=== PATIENT | male | born 1995 | race Caucasian/White ===

== ENCOUNTER 2017-04-26 13:48 | Emergency (ER) | payer OTHER ==
[~2017-04-26] VITALS: Ht 180.3 cm; Wt 70.0 kg
[~2017-04-26 13:48] MED LIST: ALBU17I INH
[2017-04-26 13:50] VITALS: BP 125/76; PULSE 78; RESP 13; TEMP 98.2; O2SAT 99
[2017-04-26] MEDS ORDERED: SODIUM CHLOR 0.9% 1000 ML INJ 1,000 ML IV ONE (15:04)
[2017-04-26 15:06] VITALS: O2SAT 100
[2017-04-26] MEDS ORDERED: SODIUM CHLORIDE 0.9% FLUSH 10 ML FLUSH IVF PRN (15:15)
[2017-04-26 15:39] LABS: AUTOMATED NEUTROPHIL # 4.1 TH/MM3 (1.8-7.7); BASOPHIL % 0.4 % (0.0-2.0); EOSINOPHIL # 0.2 TH/MM3 (0-0.4); EOSINOPHIL % 3.1 % (0.0-4.0); HEMATOCRIT 42.2 % (39.0-51.0); HEMO FLAGS DIFF FINAL; LYMPH % 24.9 % (9.0-44.0); LYMPHOCYTE # 1.6 TH/MM3 (1.0-4.8); MEAN CELL VOLUME 85.5 FL (80.0-100.0); MEAN CORPUSCULAR HEMOGLOBIN 28.8 PG (27.0-34.0); MEAN CORPUSCULAR HGB CONC 33.7 % (32.0-36.0); MONO % 8.9 % (0.0-8.0); NEUT % 62.7 % (16.0-70.0); PLATELET COUNT 210 TH/MM3 (150-450); RED BLOOD COUNT 4.93 MIL/MM3 (4.50-5.90); RED CELL DISTRIBUTION WIDTH 13.1 % (11.6-17.2); WHITE BLOOD COUNT 6.6 TH/MM3 (4.0-11.0)
--- NOTE | 2017-04-26 15:42 | PD ---
HPI Chief Complaint: Alcohol/Drug Intoxication Time Seen by Provider: 15:00 Travel History International Travel<30 days: No Contact w/Intl Traveler<30days: No Traveled to known affect area: No History of Present Illness HPI This Is a 22-year-old male who presents accompanied by his parents for evaluation. The patient has long-standing history of marijuana use. He occasionally snorts Xanax and uses other drugs. He reports that yesterday while partying he snorted 5 Xanax pills. Someone said a video of this to his parents are concerned and brought him for evaluation. He reports that the only drugs that he is use recently or the Xanax and marijuana. He denies any IV drug abuse. He denies any opiate use. He denies any alcohol use. He apparently said that he has thoughts of suicide occasionally in front of his parents although he is currently denying it. He is somewhat of a poor historian at this time and seems reluctant to answer questions accurately. [facility] Past Medical History ADD: Yes ADHD: Yes Asthma: Yes Anxiety: Yes Diminished Hearing: No Immunizations Current: Yes Past Surgical History Surgical History: No Previous Surgery Social History Alcohol Use: Yes Tobacco Use: No Substance Use: Yes Allergies-Medications (Allergen,Severity, Reaction): Coded Allergies: No Known Allergies (Verified , 04/26/17) Reported Meds & Prescriptions Reported Meds & Active Scripts Active Reported Proventil Mdi (Albuterol Sulfate) 17 Gm Aero 17 Gm INH Q4 PRN Review of Systems Except as stated in HPI: all other systems reviewed are Neg Physical Exam Narrative GENERAL: This is a disheveled-appearing male who is somewhat drowsy but awake and responding to commands and questions. His vital signs have been reviewed. SKIN: Warm and dry. HEAD: Atraumatic. Normocephalic. EYES: Pupils equal and round. No scleral icterus. No injection or drainage. ENT: No nasal bleeding or discharge. Mucous membranes pink and moist. NECK: Trachea midline. No JVD. CARDIOVASCULAR: Regular rate and rhythm. No murmur appreciated. RESPIRATORY: No accessory muscle use. Clear to auscultation. Breath sounds equal bilaterally. GASTROINTESTINAL: Abdomen soft, non-tender, nondistended. Hepatic and splenic margins not palpable. MUSCULOSKELETAL: No obvious deformities. No clubbing. No cyanosis. No edema. NEUROLOGICAL: Awake and alert. No obvious cranial nerve deficits. Motor grossly within normal limits. Slurred speech. PSYCHIATRIC: Appropriate mood and affect; insight and judgment normal. Data Data Last Documented VS Vital Signs Date Time Temp Pulse Resp B/P (MAP) Pulse Ox O2 Delivery O2 Flow Rate FiO2 04/26/17 18:43 76 16 110/68 (82) 98 Room Air 04/26/17 13:50 98.2 Orders Orders Electrocardiogram (04/26/17 15:04) Complete Blood Count With Diff (04/26/17 15:04) Comprehensive Metabolic Panel (04/26/17 15:04) Iv Access Insert/Monitor (04/26/17 15:04) Ecg Monitoring (04/26/17 15:04) Oximetry (04/26/17 15:04) Sodium Chloride 0.9% Flush (Ns Flush) (04/26/17 15:15) Sodium Chlor 0.9% 1000 Ml Inj (Ns 1000 M (04/26/17 15:04) Drug Screen, Random Urine (04/26/17 15:04) Alcohol (Ethanol) (04/26/17 15:04) Salicylates (Aspirin) (04/26/17 15:04) Tylenol (Acetaminophen) (04/26/17 15:04) Psych Screen (04/26/17 15:04) Dextrose 50% In Emanuel (Vial) Inj (D50w (Vi (04/26/17 16:30) Labs Laboratory Tests Test 04/26/17 15:14 04/26/17 16:06 White Blood Count 6.6 TH/MM3 Red Blood Count 4.93 MIL/MM3 Hemoglobin 14.2 GM/DL Hematocrit 42.2 % Mean Corpuscular Volume 85.5 FL Mean Corpuscular Hemoglobin 28.8 PG Mean Corpuscular Hemoglobin Concent 33.7 % Red Cell Distribution Width 13.1 % Platelet Count 210 TH/MM3 Mean Platelet Volume 9.3 FL Neutrophils (%) (Auto) 62.7 % Lymphocytes (%) (Auto) 24.9 % Monocytes (%) (Auto) 8.9 % Eosinophils (%) (Auto) 3.1 % Basophils (%) (Auto) 0.4 % Neutrophils # (Auto) 4.1 TH/MM3 Lymphocytes # (Auto) 1.6 TH/MM3 Monocytes # (Auto) 0.6 TH/MM3 Eosinophils # (Auto) 0.2 TH/MM3 Basophils # (Auto) 0.0 TH/MM3 CBC Comment DIFF FINAL Differential Comment Blood Urea Nitrogen 14 MG/DL Creatinine 0.77 MG/DL Random Glucose 53 MG/DL Total Protein 7.2 GM/DL Albumin 4.2 GM/DL Calcium Level 9.0 MG/DL Alkaline Phosphatase 82 U/L Aspartate Amino Transf (AST/SGOT) 12 U/L Alanine Aminotransferase (ALT/SGPT) 23 U/L Total Bilirubin 0.3 MG/DL Sodium Level 140 MEQ/L Potassium Level 4.2 MEQ/L Chloride Level 107 MEQ/L Carbon Dioxide Level 29.9 MEQ/L Anion Gap 3 MEQ/L Estimat Glomerular Filtration Rate 128 ML/MIN Salicylates Level 2.3 MG/DL Acetaminophen Level LESS THAN 2.0 MCG/ML Ethyl Alcohol Level LESS THAN 3 MG/DL Urine Opiates Screen NEG Urine Barbiturates Screen NEG Urine Amphetamines Screen NEG Urine Benzodiazepines Screen POS Urine Cocaine Screen NEG Urine Cannabinoids Screen POS MDM Medical Decision Making Medical Screen Exam Complete: Yes Emergency Medical Condition: Yes Medical Record Reviewed: Yes Differential Diagnosis Polysubstance abuse, intentional overdose, major depressive disorder, suicidal ideation Narrative Course 22-year-old male presents parents for evaluation of Xanax and marijuana abuse. He apparently has also been suffering from some suicidal thoughts although he is currently Being very evasive with being very evasive with questioning. He is currently awake and alert but he has mild slurred speech. Plan is for basic lab work, EKG, ECG monitoring. He will be monitored closely. I have discussed with my attending Dr. Massey has opted to place the patient under Gutierrez act given the unpredictable nature of this patient. Mental health screening discussed with the patient. Psychiatric screen ordered. Blood sugar 53, lab work otherwise unremarkable. The patient is being given D50. He is medically clear for psychiatric disposition. Diagnosis Primary Impression: Polysubstance abuse Miguel A Villar Apr 26, 2017 15:42
[2017-04-26 16:00] LABS: ALT (GPT) 23 U/L (12-78); ANION GAP 3 MEQ/L (5-15); AST (GOT) 12 U/L (15-37); BICARBONATE 29.9 MEQ/L (21.0-32.0); BLOOD UREA NITROGEN 14 MG/DL (7-18); CHLORIDE 107 MEQ/L (98-107); GLOMERULAR FILTRATION RATE 128 ML/MIN (>89); POTASSIUM 4.2 MEQ/L (3.5-5.1); SODIUM (NA) 140 MEQ/L (136-145)
[2017-04-26 16:08] LABS: ACETAMINOPHEN LESS THAN 2.0 MCG/ML (10.0-30.0); ALKALINE PHOSPHATASE 82 U/L (45-117); TOTAL BILIRUBIN ADULT 0.3 MG/DL (0.2-1.0)
[2017-04-26 16:19] LABS: ALCOHOL LESS THAN 3 MG/DL (0-5)
[2017-04-26 16:21] VITALS: BP 114/73; PULSE 66; RESP 18; O2SAT 99
[2017-04-26] MEDS ORDERED: DEXTROSE 50% IN WATER 50 ML VIAL(D50) IV PUSH ONE (16:30)
--- NOTE | 2017-04-26 16:34 | PD ---
Physical Exam Narrative GENERAL: DISHEVELED APPEARANCE, YOUNG MALE SKIN: Warm and dry. HEAD: Atraumatic. Normocephalic. EYES: Pupils equal and round. No scleral icterus. No injection or drainage. ENT: No nasal bleeding or discharge. Mucous membranes pink and moist. NECK: Trachea midline. No JVD. CARDIOVASCULAR: Regular rate and rhythm. RESPIRATORY: No accessory muscle use. Clear to auscultation. Breath sounds equal bilaterally. GASTROINTESTINAL: Abdomen soft, non-tender, nondistended. Hepatic and splenic margins not palpable. MUSCULOSKELETAL: Extremities without clubbing, cyanosis, or edema. No obvious deformities. NEUROLOGICAL: Awake and alert. No obvious cranial nerve deficits. Motor grossly within normal limits. Five out of 5 muscle strength in the arms and legs. Normal speech. PSYCHIATRIC: Appropriate mood and affect; insight and judgment normal. EVASIVE BEHAVIOR AND NOT FORTHCOMING, HOWEVER HE HAS MADE COMMENTS TO FAMILY AND STAFF THAT RAISE THE SUSPICION OF SI Data Data Last Documented VS Vital Signs Date Time Temp Pulse Resp B/P (MAP) Pulse Ox O2 Delivery O2 Flow Rate FiO2 04/26/17 16:21 66 18 114/73 (87) 99 Room Air 04/26/17 13:50 98.2 Orders Orders Electrocardiogram (04/26/17 15:04) Complete Blood Count With Diff (04/26/17 15:04) Comprehensive Metabolic Panel (04/26/17 15:04) Iv Access Insert/Monitor (04/26/17 15:04) Ecg Monitoring (04/26/17 15:04) Oximetry (04/26/17 15:04) Sodium Chloride 0.9% Flush (Ns Flush) (04/26/17 15:15) Sodium Chlor 0.9% 1000 Ml Inj (Ns 1000 M (04/26/17 15:04) Drug Screen, Random Urine (04/26/17 15:04) Alcohol (Ethanol) (04/26/17 15:04) Salicylates (Aspirin) (04/26/17 15:04) Tylenol (Acetaminophen) (04/26/17 15:04) Psych Screen (04/26/17 15:04) Dextrose 50% In Emanuel (Vial) Inj (D50w (Vi (04/26/17 16:30) Labs Laboratory Tests Test 04/26/17 15:14 White Blood Count 6.6 TH/MM3 Red Blood Count 4.93 MIL/MM3 Hemoglobin 14.2 GM/DL Hematocrit 42.2 % Mean Corpuscular Volume 85.5 FL Mean Corpuscular Hemoglobin 28.8 PG Mean Corpuscular Hemoglobin Concent 33.7 % Red Cell Distribution Width 13.1 % Platelet Count 210 TH/MM3 Mean Platelet Volume 9.3 FL Neutrophils (%) (Auto) 62.7 % Lymphocytes (%) (Auto) 24.9 % Monocytes (%) (Auto) 8.9 % Eosinophils (%) (Auto) 3.1 % Basophils (%) (Auto) 0.4 % Neutrophils # (Auto) 4.1 TH/MM3 Lymphocytes # (Auto) 1.6 TH/MM3 Monocytes # (Auto) 0.6 TH/MM3 Eosinophils # (Auto) 0.2 TH/MM3 Basophils # (Auto) 0.0 TH/MM3 CBC Comment DIFF FINAL Differential Comment Blood Urea Nitrogen 14 MG/DL Creatinine 0.77 MG/DL Random Glucose 53 MG/DL Total Protein 7.2 GM/DL Albumin 4.2 GM/DL Calcium Level 9.0 MG/DL Alkaline Phosphatase 82 U/L Aspartate Amino Transf (AST/SGOT) 12 U/L Alanine Aminotransferase (ALT/SGPT) 23 U/L Total Bilirubin 0.3 MG/DL Sodium Level 140 MEQ/L Potassium Level 4.2 MEQ/L Chloride Level 107 MEQ/L Carbon Dioxide Level 29.9 MEQ/L Anion Gap 3 MEQ/L Estimat Glomerular Filtration Rate 128 ML/MIN Salicylates Level 2.3 MG/DL Acetaminophen Level LESS THAN 2.0 MCG/ML Ethyl Alcohol Level LESS THAN 3 MG/DL [facility] Medical Record Reviewed: Yes Supervised Visit with FRANK: Yes Narrative Course PATIENT SEEN PERSONALLY IN ADDITION TO DAVID GAGNON. I HAV PERSONALLY REVIEWED ALL VITAL, LABORATORY WHICH ARE ALL WITHIN NORMAL LIMITS, PATIENT IS PRESENTLY MEDICALLY CLEARED. Diagnosis Primary Impression: Polysubstance abuse Additional Impression: MEDICALLY CLEARED FOR Rodrigo Barragan MD Apr 26, 2017 16:34
[2017-04-26 18:43] VITALS: BP 110/68; PULSE 76; RESP 16; O2SAT 98
[2017-04-26 23:21] VITALS: BP 94/54; PULSE 54; RESP 16; O2SAT 99
[2017-04-26 23:38] VITALS: BP 131/82; PULSE 51; RESP 16; O2SAT 98
[2017-04-27 02:07] VITALS: BP 93/55; PULSE 45; RESP 16
[2017-04-27 06:24] VITALS: BP 98/61; PULSE 58; RESP 16
[2017-04-27 12:01] VITALS: BP 125/58; PULSE 78; RESP 18; O2SAT 100
--- NOTE | 2017-04-27 16:11 | EKG ---
Date Performed: 04/26/2017 Time Performed: 16:13:21 PTAGE: 22 years EKG: MARKED SINUS ARRYTHMIA This is new compared to previous tracing ABNORMAL RHYTHM ECG PREVIOUS TRACING : 12/30/2011 11.13 DOCTOR: Juan Antonio Santana Interpretating Date/Time 04/27/2017 16:09:55
== END 2017-04-27 16:37 ==
LOC: NEPC 13:48 → NEPJ 04-27 16:37
DX: F19.10 Other psychoactive substance abuse, uncomplicated (principal); F12.10 Cannabis abuse, uncomplicated; F15.90 Other stimulant use, unspecified, uncomplicated; R94.31 Abnormal electrocardiogram [ECG] [EKG]; F90.9 Attention-deficit hyperactivity disorder, unspecified type; F41.9 Anxiety disorder, unspecified
CPT/HCPCS: 80053; 80307; 85025; 93005; 96361; 96374; 99284; J7030